=== PATIENT | female | born 1980 | race Caucasian/White ===

== ENCOUNTER → 2023-02-21 | Emergency (ER) | payer OTHER ==
[~2023-02-21] VITALS: Ht 162.6 cm; Wt 56.7 kg
[~2023-02-21] MED LIST: INTESTINEX680 M1 PO; LOREEV XR1 MG PO; PEPCID40 MG PO
== END | disposition home or self-care (01) ==
LOC: ER 17:12
DX: R00.2 Palpitations (principal); K29.70 Gastritis, unspecified, without bleeding; E87.6 Hypokalemia; F41.9 Anxiety disorder, unspecified